=== PATIENT | male | born 1945 | race Caucasian/White ===

== ENCOUNTER → 2020-12-07 | Outpatient (CLI) | payer MEDICARE, OTHER ==
--- NOTE | 2020-12-07 14:03 | CARDNUC ---
[place] [address] CARDIAC NUCLEAR IMAGING REPORT Name: ORTIZ LEUNG Room: [facility]#: [id number] Admission: 12/07/20 Attend Phys: Valentin Douglass, Discharge: Date of : 47 Date of Service: 12/07/20 1403 Report #: [id number] THIS REPORT FOR: cc: Brian Patterson Marc D. FNPC Liston, Michael J. MD [facility] ~ APPROVED REPORT Imaging Protocol: Rest Tc-99m/Stress Tc-99m 1 day Study performed: 12/07/2020 08:15:00 Indication: JACKSON, s/p CABG, s/p AL, dyslipidemia Patient Location: Out-Patient Stress Tech: Klaudia Brumfield Stress Nurse: Wendie De Luna RN NM Tech:NAHEED Garcia Ht: 6 ft 1 in Wt: 232 lbs BSA: 2.29 m2 BMI: 30.60 Medical History Medical History: CAD s/p CABG, CAD s/p AL, Former Smoker, HTN, dyslipidemia, FHX CAD, obesity. Medications: Amlodipine, ASA 81 mg, Atorvastatin, Valsartan. Allergies: No known drug allergies Cardiac Risk Factors: Age, FHX of CAD, HTN, dyslipidemia, JACKSON, Past Smoker, s/p CABG/AL, obesity. Previous Cardiac Procedures: Myocardial infarction, CABG. Pretest Chest Pain Characteristics: No chest pain Exercise History: Physically active Physical Disabilities: None noted Meds Held (24 hrs): None Resting Data Rest SPECT myocardial perfusion imaging was performed in supine position 30 minutes following the intravenous injection of 8.7 mCi of Tc-99m Sestamibi. Time of rest injection: 0840 Date: 12/07/2020 The images were gated to evaluate regional wall motion and calculate left ventricular ejection fraction. Administration Route: IV Administration Site: [place] [address] CARDIAC NUCLEAR IMAGING REPORT Name: ORTIZ LEUNG Room: [facility]#: [id number] Admission: 12/07/20 Attend Phys: Valentin Douglass, Discharge: Date of : 47 Date of Service: 12/07/20 1403 Report #: [id number] Exercise Stress At peak stress, the patient was injected intravenously with 30.9mCi of Tc-99m Sestamibi. Time of stress injection: 1040 Date: 12/07/2020 Administration Route: IV Administration Site: Right Gated Stress SPECT was performed 30 minutes after stress injection. The images were gated to evaluate regional wall motion and calculate left ventricular ejection fraction. Prone imaging was performed. Stress Test Details Stress Test: Exercise stress testing was performed using a Bryn protocol. HR Max Heart Rate (APMHR): 146 bpm Resting HR: 62 bpm Target HR (85% APMHR): 124 bpm Max HR Achieved: 146 bpm % of APMHR: 100 Recovery HR: 95 bpm BP Resting BP: 141/73 mmHg Max BP: 238/81 mmHg Recovery BP: 151/72 mmHg ECG Resting ECG: Sinus Rhythm Stress ECG: Sinus Tachycardia ST Change: None Arrhythmia: None Recovery ECG: Sinus Rhythm Recovery ST Change: None Recovery Arrhythmia: None Clinical Reason for Termination: Completed protocol, Maximal effort, Patient Request, Target HR obtained. Stress Symptoms: Dyspnea, leg fatigue. Exercise duration: 6 min 56 sec Exercise capacity: 8.48 METs Overall Exercise Capacity for Age: Normal The patient tolerated standard Bryn protocol exercise without significant cardiac symptoms. [place] [address] CARDIAC NUCLEAR IMAGING REPORT Name: XOCHITLORTIZ Lomax Room: [facility]#: [id number] Admission: 12/07/20 Attend Phys: Valentin Douglass, Discharge: Date of : 47 Date of Service: 12/07/20 1403 Report #: [id number] A 75 year old male presented for a treadmill nuclear stress test. Treadmill tolerated through stage 2, target HR achieved. Recovery unremarkable. Patient was stable and stated he felt good when escorted to Nuclear Medicine for imaging. Stress ECG Conclusion The baseline twelve-lead EKG shows sinus rhythm without significant ST segment or T wave abnormality. EKGs obtained during and post exercise show sinus rhythm and sinus tachycardia with no significant ST segment or T wave changes when compared to baseline. There were no stress-induced arrhythmias. Study Quality Study: Good Artifact: No artifact Perfusion Perfusion images obtained at rest and post exercise stress show uniform uptake of the radioisotope that the myocardium. There were no defects to suggest infarct or ischemia. Wall Motion Normal left ventricular wall motion. Nuclear Conclusion ECG Findings: negative for ischemia Clinical Findings: negative for ischemia Nuclear Findings: negative for ischemia Exercise Capacity: normal Left Ventricular Function: normal Risk Study: low Perfusion images show no defect to suggest infarct or ischemia. Left ventricular systolic function appears normal on gated studies. This is a low risk study. <Conclusion> The baseline twelve-lead EKG shows sinus rhythm without significant ST segment or T wave abnormality. EKGs obtained during and post exercise show sinus rhythm and sinus tachycardia with no significant ST segment or T wave changes when compared to baseline. There were no stress-induced arrhythmias. <ELECTRONICALLY SIGNED> By: Valentin Douglass MD, FACC 12/07/20 1403 1403 1403 Valentin Douglass MD, FACC /INF
== END ==
LOC: M.NUC 12-01 08:00 → M.CRD 12-01 09:00 → M.NUC 12-01 10:00
PROVIDERS: ATTEND Internal Medicine Cardiovascular Disease
DX: I25.10 Atherosclerotic heart disease of native coronary artery without angina pectoris (principal); Z95.1 Presence of aortocoronary bypass graft